=== PATIENT | female | born 1970 | race Caucasian/White ===

== ENCOUNTER 2017-06-27 09:12 | Emergency (ER) | payer BC ==
[~2017-06-27] VITALS: Ht 160 cm; Wt 54.5 kg
[~2017-06-27 09:12] MED LIST: CRANBERRY1 CAP PO; MACROBID 1100 MG/CAP PO; MULTIPLE VITAMI1 CAP PO; NO HOME MEDICATIONS; PYRIDIUM200 M1 PO; VITAMIN D32000 IU PO
[2017-06-27 09:48] VITALS: TEMP 98.2
[2017-06-27] MEDS ORDERED: PROMETRIUM100 MG PO (09:54)
[2017-06-27 10:23] LABS: BASO % 0.5 % (0.0-2.0); EOS # 0.2 (0.0-0.7); EOS % 2.3 % (0-4.0); GRAN # 5.4 (1.4-6.5); GRAN % 71.5 % (42.2-75.2); HEMATOCRIT 39.1 % (37.0-47.0); HEMOGLOBIN 12.7 g/dl (12.5-16.0); LYMPH # 1.4 (1.2-3.4); LYMPH % 18.1 % (20.0-51.0); MEAN CELL VOLUME 92 fl (80.0-100.0); MEAN CORPUSCULAR HEMOGLOBIN 30 pg (27.0-31.0); MEAN CORPUSCULAR HGB CONC 33 g/dl (33.0-37.0); MEAN PLATELET VOLUME 10.6 fl (7.4-10.4); MONO # 0.5 (0.1-0.6); MONO % 7.2 % (1.7-9.3); PLATELET COUNT 280 K/mm3 (130-400); RED BLOOD COUNT 4.26 M/mm3 (4.10-5.30); REDCELL DISTRIBUTION WIDTH-CV 12.9 % (11.5-14.5)
[2017-06-27 10:30] LABS: CALCIUM 9.8 mg/dL (8.4-10.2); CREATININE, serum 0.71 mg/dL (0.52-1.25); POTASSIUM 4.3 mmol/L (3.4-5.0)
[2017-06-27 11:01] LABS: THYROID STIMULATING HORMONE 0.932 uIU/mL (0.465-4.680)
[2017-06-27 11:40] VITALS: BP 127/74; PULSE 67
== END 2017-06-27 11:41 | disposition home or self-care (01) ==
LOC: COL.ER 09:12
PROVIDERS: Emergency Medicine
DX: N84.0 Polyp of corpus uteri (principal)

== ENCOUNTER → 2018-06-23 | Outpatient (CLI) | payer OTHER ==
[~2018-06-23] MED LIST changes: +PROMETRIUM100 MG PO
== END ==
LOC: COL.RAD 07:28
DX: M25.512 Pain in left shoulder (principal)

== ENCOUNTER 2022-02-18 21:42 | Emergency (ER) | payer BC ==
[~2022-02-18] VITALS: Ht 160 cm; Wt 63.6 kg
[2022-02-18 21:48] VITALS: TEMP 97.8
[2022-02-18 22:11] LABS: BASO # 0.1 K/mm3 (0.0-0.2); BASO % 0.8 % (0.0-2.0); EOS # 0.4 K/mm3 (0.0-0.7); EOS % 3.5 % (0.0-4.0); GRAN # 5.7 K/mm3 (1.4-6.5); GRAN % 57.5 % (42.2-75.2); HEMATOCRIT 40.2 % (37.0-47.0); HEMOGLOBIN 13.3 g/dl (12.5-16.0); LYMPH # 2.9 K/mm3 (1.2-3.4); LYMPH % 29.1 % (20.0-51.0); MEAN CELL VOLUME 88 fl (80.0-100.0); MEAN CORPUSCULAR HEMOGLOBIN 29 pg (27-31); MEAN CORPUSCULAR HGB CONC 33 g/dl (33.0-37.0); MONO # 0.9 K/mm3 (0.1-0.6); MONO % 8.7 % (1.7-9.3); PLATELET COUNT 279 K/mm3 (130-400); RED BLOOD COUNT 4.56 M/mm3 (4.10-5.30); REDCELL DISTRIBUTION WIDTH-CV 12.5 % (11.5-14.5)
[2022-02-18 22:31] LABS: ALBUMIN 3.9 gm/dL (3.5-5.0); BILIRUBIN,TOTAL 0.2 mg/dL (0.2-1.2); CALCIUM 9.1 mg/dL (8.4-10.2); CREATININE, serum 0.79 mg/dL (0.57-1.11); POTASSIUM 3.8 mmol/L (3.5-4.5); TOTAL PROTEIN 7.7 gm/dL (6.2-8.1)
[2022-02-18 22:37] LABS: TROPONIN-I 0.014 ng/mL (0.00-0.033)
[2022-02-18 22:58] VITALS: BP 154/80; PULSE 76
== END 2022-02-18 22:59 | disposition home or self-care (01) ==
LOC: COL.ER 21:42
PROVIDERS: Personal Emergency Response Attendant
DX: R07.9 Chest pain, unspecified (principal)